=== PATIENT | male | born 1955 | race Caucasian/White ===

== ENCOUNTER → 2020-01-21 | Outpatient (CLI) | payer MEDICARE, OTHER ==
[~2020-01-21] MED LIST: AMIO200T PO; ASPI-496 PO; ATOR40TA78 PO; CALC200T3 PO; DOCU-131 PO; FLUO15CR2 TD; FURO-93 PO; HYDR-3245 PO; LISI5TAB7 PO; LOSA25TA2 PO; LOSA25TA25 PO; METO25TA35 PO/NG; POTA10TA5 PO; WARF7.5T46 PO
== END | disposition home or self-care (01) ==
LOC: CVU 06:27
PROVIDERS: ATTEND Internal Medicine Cardiovascular Disease
DX: I70.203 Unspecified atherosclerosis of native arteries of extremities, bilateral legs (principal)
CPT/HCPCS: 93922; 93925

== ENCOUNTER 2020-02-14 09:19 | Day surgery (SDC) | payer MEDICARE ==
[~2020-02-14] VITALS: Ht 177.8 cm; Wt 83.0 kg
[2020-02-14 10:04] VITALS: BP 150/78
[2020-02-14] MEDS ORDERED: SODIUM CHLORIDE 0.9% 1,000 ML IV SCH (10:06)
[2020-02-14] MEDS ORDERED: METO25TA91 PO (10:11)
[2020-02-14 10:44] LABS: PROTHROMBIN TIME 10.6 Seconds (9.6-11.5)
[2020-02-14] MEDS ORDERED: FENTANYL PF 100 MCG/2ML ONE (11:45)
[2020-02-14] MEDS ORDERED: MIDAZOLAM 1 MG/ML, 5ML ONE (11:45)
[2020-02-14] MEDS ORDERED: NALOXONE 1 MG/ML, 2ML ONE (11:46)
[2020-02-14] MEDS ORDERED: FLUMAZENIL 0.1 MG/1 ML, 5ML ONE (11:46)
[2020-02-14] MEDS ORDERED: HEPARIN 1,000 UNITS/ML, 10ML ONE (11:46)
[2020-02-14] MEDS ORDERED: PROTAMINE SULFATE 10 MG/ML, 25ML ONE (11:46)
[2020-02-14] MEDS ORDERED: VISIPAQUE 270 MG/ML, 50ML BOTTLE ONE (12:00)
[2020-02-14] MEDS ORDERED: LIDOCAINE 1%, 10ML ONE (12:20)
[2020-02-14] MEDS ORDERED: CLOPIDOGREL 300 MG TABLET ONE (13:47)
== END 2020-02-14 16:20 | disposition home or self-care (01) ==
LOC: OUT 09:19
PROVIDERS: ATTEND Internal Medicine Cardiovascular Disease
DX: I70.213 Atherosclerosis of native arteries of extremities with intermittent claudication, bilateral legs (principal); I25.10 Atherosclerotic heart disease of native coronary artery without angina pectoris; I10 Essential (primary) hypertension; I42.8 Other cardiomyopathies; E78.5 Hyperlipidemia, unspecified; F17.211 Nicotine dependence, cigarettes, in remission; Z79.899 Other long term (current) drug therapy; Z79.01 Long term (current) use of anticoagulants; Z95.2 Presence of prosthetic heart valve; Z98.890 Other specified postprocedural states; Z72.89 Other problems related to lifestyle; Z82.49 Family history of ischemic heart disease and other diseases of the circulatory system
CPT/HCPCS: 36415; 37226; 75625; 75716; 85610; 85730; 99156; 99157; C1751; C1760; C1769; C1874; C1876; C1894; C2623; J1644; J2250; J3010; Q9966; 75710; J2720; J2310